=== PATIENT | male | born 1960 | race Caucasian/White ===

== ENCOUNTER 2018-12-09 16:38 | Emergency (ER) | payer BC ==
[2018-12-09] MEDS ORDERED: Cephalexin 500 MG Cap PO ONE (16:39)
[2018-12-09] MEDS ORDERED: Acetaminophen/HYDROcodone 325-5 MG Tab PO ONE (16:39)
[2018-12-09] MEDS: Lidocaine 1% 20 ML MDV INJECT ONE (17:05)
--- NOTE | 2018-12-09 18:17 | EDM.PDOC ---
ED HPI GENERAL MEDICAL PROBLEM - General Chief Complaint: Laceration Stated Complaint: CUT FINGER Time Seen by Provider: 12/09/18 17:00 Source of Information: Reports: Patient History Limitations: Reports: No Limitations - History of Present Illness INITIAL COMMENTS - FREE TEXT/NARRATIVE: Gabriel is a 58 yo male who presents to the ED via private vehicle with complaints of a cut to his ring finger of his left hand. He states he was taking the whitley off of an auger and it slipped. States his finger got stuck underneath the hitch and he pulled his finger out cutting his hand. He isn't sure on Tetanus status. Vital signs Temp 96.6 Pulse 85 O2 95% RA BP 129/95 - Related Data Allergies Allergy/AdvReac Type Severity Reaction Status Date / Time No Known Allergies Allergy Verified 12/09/18 18:32 Home Meds: Home Meds Aspirin [Ecotrin] 325 mg PO DAILY 07/18/16 [History] Escitalopram Oxalate 10 mg PO DAILY 07/18/16 [History] Metoprolol Tartrate 50 mg PO DAILY 07/18/16 [History] Multivitamin [Daily Multiple Vitamin] 1 tab PO DAILY 07/18/16 [History] atorvaSTATin [Lipitor] 20 mg PO DAILY 07/18/16 [History] Past Medical History Cardiovascular History: Reports: High Cholesterol, Hypertension Musculoskeletal History: Reports: Arthritis Psychiatric History: Reports: Anxiety - Past Surgical History HEENT Surgical History: Reports: LASIK Musculoskeletal Surgical History: Reports: Knee Replacement - History Comment History Comment: See RN note for past medical history. Social & Family History - Tobacco Use Smoking Status *Q: Never Smoker - Recreational Drug Use Recreational Drug Use: No - Living Situation & Occupation Living situation: Reports: , with Spouse Occupation: Employed ([employer]) Review of Systems - Review of Systems Review Of Systems: ROS reveals no pertinent complaints other than HPI. Musculoskeletal: Reports: Hand Pain Skin: Reports: Wound ED EXAM, GENERAL - Physical Exam Exam: See Below Exam Limited By: No Limitations General Appearance: Alert, No Apparent Distress Extremities: Other (5cm flap laceration to right index finger, middle phalange. Irregular edges noted. Mild bleeding noted. No tendon involvement seen. Full ROM of finger. ) Skin Exam: Wound/Incision (see extremities) ED TRAUMA EXTREMITY PROCEDURES - Laceration/Wound Repair Right Middle Digit - 4th (Ring) Lac/Wound Length In cm: 5 Appearance: Superficial, Irregular, Mildly Contaminated, Moderately Contaminated Distal NVT: Neuro & Vascular Intact, No Tendon Injury Anesthetic Type: Digital Local Anesthesia - Lidocaine (Xylocaine): 1% Plain Exploration/Debridement/Repair: Wound Explored, In a Bloodless Field, Explored to Base, Minimal Debridement, Foreign Material Removed (grass), Multiple Flaps Aligned Closed With: Sutures Suture Size: other (5) # of Sutures: 12 Suture Type: Prolene, Interrupted, Simple Sterile Dressing Applied: Nurse Tetanus Status Addressed: Yes Complications: No Course - Orders/Labs/Meds Meds: Medications Discontinued Medications Generic Name Dose Route Start Last Admin Trade Name Paola PRN Reason Stop Dose Admin Lidocaine HCl Confirm 12/09/18 17:02 Xylocaine 1% Administered 12/09/18 17:03 Dose 20 ml .ROUTE .STK-MED ONE Lidocaine HCl 20 ml 12/09/18 17:02 Xylocaine 1% INJECT 12/09/18 17:03 ONETIME ONE Neomycin/Polymyxin/Bacitracin 3 each 12/09/18 17:45 Triple Antibiotic Oint TOP 12/09/18 17:46 ONETIME ONE Departure - Departure Time of Disposition: 18:24 Disposition: Home, Self-Care 01 Clinical Impression: Laceration of finger of right hand - Discharge Information Instructions: Laceration Care, Adult, [id number], Sutured Wound Care, Easy-to -Read Referrals: Jadon Beck MD [Primary Care Provider] - Forms: ED Department Discharge Additional Instructions: 1) Wear finger splint while sutures are in place 2) Sutures out in 10-12 days. 3) Keflex 500mg twice a day for 7 days 4) Apply Neosporin ointment daily 5) Watch for signs of infection... Redness, increased swelling, drainage, etc... 6) If any concerns at all, recommend reevaluation 7) Discussed monitoring tendon by flexion of the finger. If any difficulty after suture removal, advise reevaluation as well 8) Haskell 5/325 - 1 tablet every 8 hours as needed for pain 9) May use Tylenol or Mobic (at home) for mild discomfort. No more than 4000mg of Tylenol in 24 hours 10) Tdap updated today. - Problem List & Annotations (1) Laceration of finger of right hand SNOMED Code(s): 914763794 Code(s): S61.219A - LACERATION W/O FB OF UNSP FINGER W/O DAMAGE TO NAIL, INIT Status: Acute Current Visit: Yes Qualifiers: Encounter type: initial encounter Finger: ring finger Damage to nail status: without damage Foreign body presence: with foreign body Qualified Code(s): S61.224A - Laceration with foreign body of right ring finger without damage to nail, initial encounter - Assessment/Plan Plan: Discussed into detail with Gabriel about watching for tendon involvement. I explored to base and did not see any tendon involvement. Wound was closed without complication. Finger splint applied. Tdap updated. See additional instructions as well.
[2018-12-09] MEDS: Bacitracin/Neomycin/Polymyxin B Oint 0.9 GM U/D Packet TOP ONE (18:20)
[2018-12-09] MEDS: Lidocaine 1% 20 ML MDV ONE (18:32)
[2018-12-09] MEDS: Diphtheria,Pertussis(Acell),Tetanus Vaccine 0.5 ML Syringe IM ONE (18:37)
[2018-12-09] MEDS: Take Home: Acetaminophen/HYDROcodone 325-5 MG, 2 Tab Pack PO ONE (18:39)
[2018-12-09] MEDS: Take Home: Cephalexin 500 MG Cap, 4 Cap Pack PO ONE (18:39)
[2018-12-09 19:08] VITALS: BP 129/85
== END 2018-12-09 18:45 | disposition home or self-care (01) ==
LOC: CC.ED 16:38
DX: S61.224A Laceration with foreign body of right ring finger without damage to nail, initial encounter (principal); L08.9 Local infection of the skin and subcutaneous tissue, unspecified; F41.9 Anxiety disorder, unspecified; E78.00 Pure hypercholesterolemia, unspecified; I10 Essential (primary) hypertension; Z23 Encounter for immunization; W26.8XXA Contact with other sharp object(s), not elsewhere classified, initial encounter
CPT/HCPCS: 12002; 65205; 73140-F8; 90471; 90715; 99283-25; A9270-GY; J2001

== ENCOUNTER → 2020-10-06 | Day surgery (SDC) | payer BC ==
[~2020-10-06] MED LIST: Ketamine 200 MG/20 ML MDV ONE; Lactated Ringers 1,000 ML IV SCH; Midazolam 1 MG/ML 2 ML SDV ONE; Propofol 200 MG/20 ML SDV ONE; fentaNYL 100 MCG/2 ML SDV ONE
[2020-10-06 10:29] VITALS: BP 105/68; PULSE 50
--- NOTE | 2020-10-06 10:46 | OR ---
DATE OF OPERATION: 10/06/2020 PREOPERATIVE DIAGNOSIS: HISTORY OF POLYPS. POSTOPERATIVE DIAGNOSIS: HISTORY OF POLYPS. SURGEON: Jadon Beck MD PROCEDURE: DIAGNOSTIC COLONOSCOPY WITH SNARE POLYPECTOMY X2, FORCEPS POLYPECTOMY X1. ANESTHESIA: MAC. COMPLICATIONS: None. SPECIMEN: 1. Two smaller villous polyps, hepatic flexure and rectal vault. 2. Small tubular adenoma, sigmoid colon. FINDINGS: 1. Full-length colonoscopy. 2. [id number] sigmoid diverticulosis. 3. Three polyps, all less than 0.5 cm, see report. RECOMMENDATIONS: Followup colonoscopy in 5 years. INDICATIONS: The patient has a known history of prior polyps on colonoscopy. He is due for a surveillance scope. DESCRIPTION OF PROCEDURE: The patient was prepped and draped, placed in the left lateral decubitus position. A lubricated Olympus colonoscope was inserted and easily advanced to the cecum. Direct visualization of the ileocecal valve and appendiceal orifice was accomplished. The bowel prep was excellent. Upon withdrawal of the scope, the cecum and ascending colon appeared benign. At the hepatic flexure, the patient had about a 5 mm villous polyp right along the haustral fold, removed with a snare and suctioned into polyp trap #1. There was a small portion left that we removed with a forceps biopsy. The rest of the transverse and descending colons were unremarkable. The patient does have moderate diverticular disease throughout most of the sigmoid, into the rectosigmoid junction. A second small polyp was found in the mid sigmoid colon, removed with a forceps, probably only 2 to 3 mm in size. In the rectal vault, no gross abnormalities were seen. Upon retroflexion in the immediate perianal region, there was a small sessile polyp as well, probably 3 mm, removed with a snare and suctioned into polyp trap #2. Air was then suctioned. The colonoscope removed without complication. GRICELDA/BONILLA /[id number]
== END ==
LOC: CC.SDS 08:24
PROVIDERS: ATTEND Family Medicine
DX: Z12.11 Encounter for screening for malignant neoplasm of colon (principal); D12.3 Benign neoplasm of transverse colon; D12.5 Benign neoplasm of sigmoid colon; K62.1 Rectal polyp; K57.30 Diverticulosis of large intestine without perforation or abscess without bleeding; I10 Essential (primary) hypertension; E78.00 Pure hypercholesterolemia, unspecified; M17.0 Bilateral primary osteoarthritis of knee; E11.9 Type 2 diabetes mellitus without complications; N40.0 Benign prostatic hyperplasia without lower urinary tract symptoms; E66.9 Obesity, unspecified; Z01.812 Encounter for preprocedural laboratory examination; Z20.822 Contact with and (suspected) exposure to COVID-19; Z68.34 Body mass index [BMI] 34.0-34.9, adult; Z98.890 Other specified postprocedural states; Z86.010 Personal history of colon polyps; Z79.899 Other long term (current) drug therapy; Z87.891 Personal history of nicotine dependence; Z79.82 Long term (current) use of aspirin
CPT/HCPCS: 00811; J2250; J2704; J3010; J7120